=== PATIENT | female | born 1970 | race Two or more races ===

== ENCOUNTER → 2025-04-01 | Outpatient (CLI) | payer MEDICARE, MEDICAID, SELFPAY ==
--- NOTE | 2025-04-01 15:47 | XR_ITS ---
Examination: Abdomen AP single view Technique: AP portable supine abdomen, single view Exam date and time: April 01, 2025 1552 hours INDICATIONS: Status post right stent placement FINDINGS: Right ureteral stent satisfactory position 5 mm calcific density adjacent to the lower portion of the stent IMPRESSION: Right ureteral stent satisfactory position
== END | disposition home or self-care (01) ==
LOC: CDIM 15:33
PROVIDERS: PCP Student in an Organized Health Care Education/Training Program; Referring Provider Surgery; Visit Provider Surgery
DX: N13.30 Unspecified hydronephrosis (principal); Z98.890 Other specified postprocedural states
CPT/HCPCS: 74018